=== PATIENT | female | born 1965 | race Caucasian/White ===

== ENCOUNTER → 2024-04-25 | Outpatient (REF) | payer OTHER, SELFPAY | LOC: DHSLP | PROVIDERS: ATTENDING PHYSICIAN Internal Medicine; FAMILY PHYSICIAN Family Medicine | DX: G47.33 Obstructive sleep apnea (adult) (pediatric) (principal) | CPT/HCPCS: 95811 ==

== ENCOUNTER 2025-11-04 18:21 | Emergency (ER) | payer OTHER, SELFPAY ==
[2025-11-04 18:38] VITALS: BP 166/76
--- NOTE | 2025-11-04 20:40 | ED.GENMED ---
History of Present Illness
General
Chief Complaint: Wound Check/Suture Removal
Source: patient
Exam Limitations: none
Time Seen by Provider: 11/04/25 20:39
Nursing documentation reviewed up to this point in time: agreed with
History of Present Illness
History of Present Illness:
The patient is a pleasant 60-year-old female who reports that she had right foot bunion surgery done at [facility] about 1 week ago. She was instructed to not get her dressing wet, but states that she showered today and accidentally got it wet.
Patient is here because she would like a dressing change. Patient denies fevers and chills
Past History
Past History
ED Past Medical History: Cancer
ED Past Surgical History: Orthopedic and Other (thyroid sx, heart failure, possible sarcoidosis, thyroid cancer status post thyroidectomy and radiation, ovarian cyst, asthma)
Social History
Tobacco: Smoker
Alcohol: None
Drug: None
Living: with family
Employment: Other
Family History
Family History: Other
Review of Systems
Review of Systems
Allergies reviewed?: Yes
All Other Systems: ROS reviewed and negative except as documented in HPI and ROS
Constitutional: Reports no symptoms
EENT: Reports no symptoms
Respiratory: Reports no symptoms
Cardiac: Reports no symptoms
ABD/GI: Reports no symptoms
: Reports no symptoms
Musculoskeletal: Reports joint pain (Pain of right foot status post right foot bunion surgery done 1 week ago)
Skin: Reports no symptoms
Neurological: Reports no symptoms
Endocrine: Reports no symptoms
Hematologic/Lymphatic: Reports no symptoms
Psychiatric: Reports no symptoms
Phy Exam
Physical Exam
Physical Exam:
Physical Exam
General: no apparent distress, not acutely ill, well-appearing, smiling
Neck: supple.
Heart: Strong pulses in right foot
Lungs: no acute respiratory distress. clear bilaterally
Abdomen: Soft, nontender
Neuro: alert and oriented. no focal neurological deficits
Skin: Mild erythema of right foot. Multiple incisions without any drainage or bleeding.
Psychiatric: well kept. interactive and cooperative
Extremities: Mild right foot edema. Nontender calves bilaterally
Course
Vital Signs
Initial and Last Documented VS:
Initial Vital Signs
Temp Pulse Resp BP Pulse Ox
99.1 F 68 16 166/76 100
11/04/25 18:38 11/04/25 18:38 11/04/25 18:38 11/04/25 18:38 11/04/25 18:38
Last Documented Vital Signs
Temp Pulse Resp BP Pulse Ox
99.1 F 68 16 166/76 100
11/04/25 18:38 11/04/25 18:38 11/04/25 18:38 11/04/25 18:38 11/04/25 20:40
MDM/Problems Addressed
Differential Diagnosis Includes:
Acute postoperative right foot infection, appropriately healing wounds of right foot
MDM/Problems Addressed:
Patient presents with concerns of wet postoperative dressing to right foot
Acute Exacerbation and/or Progression of Chronic Illness:
Patient is acutely hypertensive, likely due to anxiety but there is no sign of neurological compromise, chest pain or shortness of breath
Acute Exacerbation and/or Progression of Chronic Illness: HTN
*Pulse Oximetry
SaO2: 100
Oxygen Mode of Delivery: Room air
Patient hypoxic: no
*EKG
Interpreted by ED Provider?: NA
*Software Trainer Interpretation
Rate: Software Trainer- N/A
*Critical Care Note
Total Time (30-74mins, 75-104mins- exclusive of procedures): Not Applicable
Data Reviewed
Source: patient
Patient Management
Social determinants of health affecting care: Living situation and Strong social support
Escalation/DeEscalation of care consider admission/obs:
Patient appears well and comfortable. I removed wet part of patient's right foot dressing and replaced with dry 4 x 4's and Redd wrap. I was able to visualize most of patient's surgical wounds which appeared clean and intact. Patient has strong
pulses of right foot. She has no calf tenderness bilaterally.
ED Attending Note
-
Portions of this chart may have been created with voice recognition software.� Occasional wrong word or��sound alike� substitutions may have occurred due to the inherent limitations of voice recognition software.
Discharge Plan
Departure
Patient Disposition: Home (Routine Discharge)
Date of Disposition: 11/04/25
Time of Disposition: 21:28
Patient with high blood pressure during this ER visit?: Yes
Condition: Good
Covid-19: Not Applicable
Discharge Problem:
Encounter for post surgical wound check
Instructions: Wound Care (DC), BLOOD PRESSURE
Prescriptions:
No Action
levothyroxine 175 MCG tablet
175 mcg PO DAILY
liothyronine 5 MCG tablet
5 mcg PO BID
fluticasone propionate 1 SPRAY spray,suspension
1 spray intranasal DAILY
loratadine 10 MG tablet
10 mg PO DAILY
calcium carbonate-vitamin D3 1 EACH tablet,chewable
1 ea PO DAILY
cholecalciferol (vitamin D3) 2,000 UNITS tablet
2,000 units PO DAILY
multivitamin with folic acid [Tab-A-Kaci] 1 TABLET tablet
1 tab PO DAILY
Xlear [place]
2 spray intranasal DAILY
Patient Comments:
06/09/20 2 sprays each nostril daily
spironolactone 12.5 MG tablet
12.5 mg PO DAILY Qty: 30 0RF
lisinopril 10 MG tablet
10 mg PO DAILY Qty: 30 0RF
furosemide 40 MG tablet
40 mg PO DAILY Qty: 30 0RF
oxycodone-acetaminophen 5 MG/325 MG tablet
1 tab PO Q4HPRN PRN (Reason: pain) Qty: 15 0RF
oxycodone-acetaminophen 5 MG/325 MG tablet
1 tab PO Q6HPRN PRN (Reason: pain) Qty: 14 0RF
Referrals:
Pk Hathaway CRNP [Family Provider, Family Practice]
Activity Restrictions/Additional Instructions:
Follow-up with your foot surgeon as scheduled in less than 1 week.
Interventions
Interventions:
*Neglect/Abuse Screening Last Done: 11/04/25 18:38
*Risk Screen - Suicide (C-SSRS) Last Done: 11/04/25 18:38
*Nursing Disposition Last Done: 11/04/25 21:32
ED-Skin Assessment Last Done: 11/04/25 21:14
Discharge Date and Time
Discharge Date/Time: 11/04/25 21:33
Print Language: ROMANIAN
== END 2025-11-04 21:33 | disposition home or self-care (01) ==
LOC: EMR 18:21
PROVIDERS: EMERGENCY PHYSICIAN Emergency Medicine; FAMILY PHYSICIAN Nurse Practitioner Family
DX: Z48.01 Encounter for change or removal of surgical wound dressing (principal); M79.671 Pain in right foot; F17.200 Nicotine dependence, unspecified, uncomplicated
CPT/HCPCS: 99281